=== PATIENT | male | born 1990 | race American Indian/Alaskan Native ===

== ENCOUNTER 2021-06-30 08:46 | Emergency (ER) | payer OTHER ==
[2021-06-30 10:24] VITALS: BP 139/95
--- NOTE | 2021-06-30 10:37 | Emergency Department Report ---
- General Chief Complaint: Upper Respiratory Infection Stated Complaint: SOB/CAN'T TASTE Time Seen by Provider: 06/30/21 10:25 Source: patient Mode of arrival: Ambulatory Limitations: No Limitations - History of Present Illness Initial Comments: Patient is a 30-year-old male presents emergency room with complaints of "cold symptoms" that began 3 days ago. He states he has associated chills, subjective fever, dry eyes, cough, congestion. he states he occasionally has shortness of breath but has no shortness of breath currently. He denies any chest pain, vomiting, diarrhea, abdominal pain, pleuritic pain. he has not been vaccinated for COVID 19. he has not been tested since becoming sick. PMHx asthma. he states he is a smoker. no allergies to meds. - Related Data Previous Rx's Medication Instructions Recorded Last Taken Type Benzonatate [Tessalon Perles] 100 mg PO Q8HR PRN #14 capsule 06/30/21 Unknown Rx guaiFENesin ER [Mucinex ER] 600 mg PO Q12H #14 tablet.er 06/30/21 Unknown Rx Allergies Allergy/AdvReac Type Severity Reaction Status Date / Time No Known Allergies Allergy Verified 06/30/21 08:54 ED Review of Systems ROS: Stated complaint: SOB/CAN'T TASTE Other details as noted in HPI Comment: All other systems reviewed and negative ED Past Medical Hx - Medications Home Medications: Home Medications Medication Instructions Recorded Confirmed Last Taken Type Benzonatate [Tessalon Perles] 100 mg PO Q8HR PRN #14 capsule 06/30/21 Unknown Rx guaiFENesin ER [Mucinex ER] 600 mg PO Q12H #14 tablet.er 06/30/21 Unknown Rx ED Physical Exam - General Limitations: No Limitations General appearance: alert, in no apparent distress - Head Head exam: Present: atraumatic, normocephalic - Eye Eye exam: Present: normal appearance, PERRL, EOMI. Absent: conjunctival injection, periorbital swelling, periorbital tenderness - ENT ENT exam: Present: normal orophraynx, mucous membranes moist, TM's normal bilaterally, normal external ear exam - Respiratory Respiratory exam: Present: normal lung sounds bilaterally. Absent: respiratory distress, wheezes, rales, rhonchi, stridor, chest wall tenderness, accessory muscle use, decreased breath sounds, prolonged expiratory - Cardiovascular Cardiovascular Exam: Present: regular rate, normal rhythm, normal heart sounds. Absent: systolic murmur, diastolic murmur, rubs, gallop - Neurological Exam Neurological exam: Present: alert, oriented X3 - Psychiatric Psychiatric exam: Present: normal affect, normal mood - Skin Skin exam: Present: warm, dry, intact ED Course Vital Signs 06/30/21 08:54 Temperature 98.5 F Pulse Rate 80 Respiratory 18 Rate Blood Pressure 139/95 O2 Sat by Pulse 99 Oximetry ED Medical Decision Making - Medical Decision Making Patient is a 30-year-old male presents emergency room with complaints of "cold symptoms" that began 3 days ago. He states he has associated chills, subjective fever, dry eyes, cough, congestion. he states he occasionally has shortness of breath but has no shortness of breath currently. He denies any chest pain, vomiting, diarrhea, abdominal pain, pleuritic pain. he has not been vaccinated for COVID 19. he has not been tested since becoming sick. PMHx asthma. he states he is a smoker. no allergies to meds. vss. No hypoxia, no tachycardia, afebrile. No abnormality on physical examination as documented in chart, breath sounds are clear bilaterally, no wheezing, no rales, no rhonchi. Patient has no clinical signs of bacterial pneumonia or bacterial bronchitis. Symptoms likely related to URI versus allergies. Discussed supportive care and symptomatic treatment with patient. Given that patient is presenting with the symptoms during COVID-19 pandemic, discussed the possibility of COVID-19 with patient, discussed return precautions, discussed outpatient testing, discussed self quarantine. Advised patient Please take medication as prescribed. May take Tylenol as needed for fever, body aches, headache. increase your fluid intake. follow up with a primary care doctor. return to the emergency room for any new or worsening symptoms. may take over the counter vitamins such as vitamin c, d, and zinc. recommend for you to get outpatient COVID 19 testing and if positive please self quarentine for 10 days from onset of symptoms. may use zatidor eye drops and liquid tears to help with eye irritation. Critical care attestation.: If time is entered above; I have spent that time in minutes in the direct care of this critically ill patient, excluding procedure time. ED Disposition Clinical Impression: Upper respiratory infection Qualifiers: URI type: unspecified URI Qualified Code(s): J06.9 - Acute upper respiratory infection, unspecified Disposition: 01 HOME / SELF CARE / HOMELESS Is pt being admited?: No Does the pt Need Aspirin: No Condition: Stable Instructions: Viral Respiratory Infection Additional Instructions: Please take medication as prescribed. May take Tylenol as needed for fever, body aches, headache. increase your fluid intake. follow up with a primary care doctor. return to the emergency room for any new or worsening symptoms. may take over the counter vitamins such as vitamin c, d, and zinc. recommend for you to get outpatient COVID 19 testing and if positive please self quarentine for 10 days from onset of symptoms. may use zatidor eye drops and liquid tears to help with eye irritation. Prescriptions: guaiFENesin ER [Mucinex ER] 600 mg PO Q12H #14 tablet.er Benzonatate [Tessalon Perles] 100 mg PO Q8HR PRN #14 capsule PRN Reason: cough Referrals: PRIMARY MD BECCA [Primary Care Provider] - 3-5 Days CRISTI MAYS MD [Staff Physician] - 3-5 Days [facility] [Provider Group] - 3-5 Days Time of Disposition: 10:37 Print Language: HEBREW
== END 2021-06-30 10:48 | disposition home or self-care (01) ==
LOC: ED 08:46
DX: J06.9 Acute upper respiratory infection, unspecified (principal); Z79.899 Other long term (current) drug therapy
CPT/HCPCS: 99281